=== PATIENT | female | born 1970 ===

== ENCOUNTER 2021-09-07 13:54 | Outpatient (CLI) | payer OTHER | END 2021-09-07 13:55 | disposition home or self-care (01) | LOC: LABHHL 13:54 | PROVIDERS: ATTEND Otolaryngology | DX: J32.2 Chronic ethmoidal sinusitis (principal); J32.0 Chronic maxillary sinusitis; J34.2 Deviated nasal septum | CPT/HCPCS: 88305; 88311; 88312 ==